=== PATIENT | male | born 1975 ===

== ENCOUNTER 2018-05-08 09:15 | Emergency (ER) | payer SELFPAY ==
[2018-05-08 12:17] LABS: HEMATOCRIT 53 % (39-53); HEMOGLOBIN 17.3 gm/dl (13.5-17.7); MEAN CORPUSCULAR HEMOGLOBIN 30.7 pg (27.0-32.0); MEAN CORPUSCULAR HGB CONC 32.9 gm/dl (32.0-36.0); MEAN CORPUSCULAR VOLUME 93 fL (80-100)
[2018-05-08 12:39] LABS: ALBUMIN 4.1 gm/dl (3.4-5.0); ALKALINE PHOSPHATASE 79 IU/L (46-116); ALT 101 IU/L (14-63); AST 58 IU/L (15-37); BILIRUBIN,TOTAL 1.7 mg/dl (0.2-1.0); BLOOD UREA NITROGEN 21 mg/dl (7-18); CARBON DIOXIDE 25.5 mEq/L (21-32); CHLORIDE 102 mMol/L (98-107); CREATININE 1.53 mg/dl (0.80-1.30); GLUCOSE 113 mg/dl (74-106); POTASSIUM 3.3 mMol/L (3.5-5.1); SODIUM 139 mMol/L (136-145); THYROID STIMULATING HORMONE 0.663 uIU/ml (0.358-3.740); TOTAL PROTEIN 7.7 gm/dl (6.4-8.2)
[2018-05-08 12:43] LABS: BAND NEUTROPHILS % (MANUAL) 5 %; BASOPHILS % (MANUAL) 0 % (0-3); EOSINOPHILS % (MANUAL) 0 % (0-9); LYMPHOCYTES % (MANUAL) 8 % (10-50); MONOCYTES % (MANUAL) 6 % (0-12); NEUTROPHILS % (MANUAL) 81 % (37-80); NORMAL RBCS PRESENT
[2018-05-08 12:44] LABS: ALCOHOL < 0.003 gm/dl (0.000-0.08)
[2018-05-08 12:50] LABS: APPEARANCE,URINE Slightly Cloudy; BILIRUBIN,URINE 2+ (NEGATIVE); COLOR,URINE Dark yellow; GLUCOSE, URINE (UA) NEGATIVE (NEGATIVE); KETONES,URINE 2+ (NEGATIVE); LEUKOCYTE ESTERASE ,URINE NEGATIVE (NEGATIVE); NITRATE,URINE NEGATIVE (NEGATIVE); OCCULT BLOOD,URINE TRACE LYSED (NEG-TRACE); PH,URINE 5.5
[2018-05-08 12:55] LABS: ICTOTEST,URINE NEGATIVE (NEGATIVE)
[2018-05-08 13:02] LABS: BACTERIA NEGATIVE (< 1+); BARBITUATES NEGATIVE (NEGATIVE); BENZODIAZEPINES NEGATIVE (NEGATIVE); CANNABINOL(THC) POSITIVE (NEGATIVE); CRYSTALS 1+ AMORPH URATES (0-3 AVE/HPF); EPITHELIAL CELLS 0-3 (SQUAMOUS); METHADONE NEGATIVE (NEGATIVE); RBC,URINE 0-1 (0-3AV/HPF); TRICYCLIC ANTIDEPRESSANTS NEGATIVE (NEGATIVE); WBC,URINE 0-2 (0-5AV/HPF)
[2018-05-08 13:03] LABS: AMPHETAMINES NEGATIVE (NEGATIVE); COCAINE(COC) NEGATIVE (NEGATIVE); METHAMPHETAMINES NEGATIVE (NEGATIVE); OPIATES(OPI) NEGATIVE (NEGATIVE); OXYCODONE(OXY) NEGATIVE (NEGATIVE); PROPOXYPHENE(PPX) NEGATIVE (NEGATIVE)
[2018-05-08] MEDS ORDERED: POTASSIUM CHLORIDE 10 MEQ TER PO ONE (14:26)
[2018-05-08] MEDS ORDERED: SODIUM CHLORIDE 0.9% 1000ML 1,000 ML IV ONE (15:19)
[2018-05-08] MEDS ORDERED: POTASSIUM CHLORIDE 10 MEQ TER ONE (15:29)
[2018-05-08] MEDS ORDERED: SODIUM CHLORIDE 0.9% FLUSH 10 ML SOL IV PRN (15:32)
[2018-05-08] MEDS ORDERED: OLANZAPINE 2.5 MG TAB ONE (15:35)
[2018-05-08 15:48] VITALS: BP 144/78; PULSE 85; RESP 18; TEMP 96.8; O2SAT 99
[2018-05-08] MEDS ORDERED: LEVOFLOXACIN 500 MG TAB PO ONE (16:26)
[2018-05-08] MEDS ORDERED: LEVOFLOXACIN 500 MG TAB ONE (16:27)
[2018-05-09] MEDS ORDERED: OLANZAPINE 2.5 MG TAB PO SCH (09:00)
== END 2018-05-08 16:35 | DRG 57 ==
LOC: ED 09:15
DX: G31.84 Mild cognitive impairment of uncertain or unknown etiology (principal); K76.0 Fatty (change of) liver, not elsewhere classified; D72.829 Elevated white blood cell count, unspecified
CPT/HCPCS: 36415; 74177; 80053; 80305; 80307; 81001; 83735; 84443; 85007; 85027; 96365; 99284; 99285; Q9967; A9270-GY